=== PATIENT | male | born 1970 | race Caucasian/White ===

== ENCOUNTER 2021-04-16 12:23 | Outpatient (REF) | payer MEDICAID, SELFPAY ==
--- NOTE | ~2021-04-16 | XR_ITS ---
EXAMINATION: XR CHEST CLINICAL INFORMATION: Other symptoms and signs involving the respiratory system COMPARISON: Previous chest x-ray most recent December 2016 TECHNIQUE: 2 views of the chest were obtained. FINDINGS: The cardiac and mediastinal contours are normal. The lungs are clear. There is no pleural effusion or pneumothorax. Bony structures are unremarkable. XR/XR chest 2V IMPRESSION: Unremarkable examination.
== END 2021-04-16 12:24 | disposition home or self-care (01) ==
LOC: HO.XRAY 12:23
PROVIDERS: PCP Internal Medicine Geriatric Medicine; Referring Provider Internal Medicine Geriatric Medicine; Visit Provider Registered Nurse
DX: M54.9 Dorsalgia, unspecified (principal); R09.89 Other specified symptoms and signs involving the circulatory and respiratory systems
CPT/HCPCS: 71046

== ENCOUNTER → 2022-02-20 10:06 | Outpatient (BNVA) | payer MEDICAID, SELFPAY | PROVIDERS: PCP Internal Medicine Geriatric Medicine; Visit Provider Internal Medicine | DX: Z51.81 Encounter for therapeutic drug level monitoring (principal); F10.10 Alcohol abuse, uncomplicated | CPT/HCPCS: 80305; 99202 ==

== ENCOUNTER 2022-12-23 11:35 | Outpatient (REF) | payer MEDICAID, SELFPAY ==
--- NOTE | 2022-12-23 10:00 | EMG_ITS ---
Please see scanned EMG / Nerve Conduction Report. MTDD
== END 2022-12-23 11:36 | disposition home or self-care (01) ==
LOC: HO.NEURO 11:35
PROVIDERS: PCP Internal Medicine Geriatric Medicine; Visit Provider Internal Medicine Geriatric Medicine
DX: R20.2 Paresthesia of skin (principal)
CPT/HCPCS: 95885; 95912

== ENCOUNTER 2023-08-16 09:24 | Outpatient (REF) | payer MEDICAID, SELFPAY ==
[2023-08-16 12:14] LABS: Estimated Average Glucose 111 mg/dL; Hemoglobin A1c % 5.5 % (<6.0)
[2023-08-16 12:34] LABS: Anion Gap 12 (12-20); Blood Urea Nitrogen 20 mg/dL (9-16); Calcium 9.8 mg/dL (8.4-10.2); Carbon Dioxide 20 mmol/L (22-29); Chloride 111 mmol/L (96-108); Estimated Glomerular Filt Rate > 60; Glucose Random 91 mg/dL (60-115); Potassium 4.4 mmol/L (3.3-5.1); Sodium 139 mmol/L (135-145)
== END 2023-08-16 09:25 | disposition home or self-care (01) ==
LOC: HO.HHCL 09:24
PROVIDERS: Visit Provider Internal Medicine Geriatric Medicine
DX: R73.03 Prediabetes (principal)
CPT/HCPCS: 36415; 80048; 83036

== ENCOUNTER 2024-09-19 10:47 | Outpatient (REF) | payer MEDICAID, SELFPAY ==
--- NOTE | ~2024-09-19 | XR_ITS ---
EXAMINATION: XR ANKLE, RIGHT CLINICAL INFORMATION: Pain, order states right ankle pain and swelling after twisting his ankle, rule out fracture COMPARISON: None available. TECHNIQUE: AP, lateral, and mortise views of the right ankle. FINDINGS: Moderate plantar calcaneal spur. Ankle joint effusion. Moderate soft tissue swelling. Ankle mortise is maintained. No displaced fracture appreciated. XR/XR ankle RT min 3V IMPRESSION: 1. Moderate plantar calcaneal spur. 2. Ankle joint effusion. Moderate soft tissue swelling. 3. No displaced fracture appreciated. This study was presented today September 20, 2024 for interpretation. Stat results provided at this time as requested by referring provider. Electronically signed by: Liss Pollock MD 09/20/2024 07:35 AM JOSIAH
== END 2024-09-19 10:48 | disposition home or self-care (01) ==
LOC: HO.HHCX 10:47
PROVIDERS: Visit Provider Family Medicine
DX: M25.571 Pain in right ankle and joints of right foot (principal)
CPT/HCPCS: 73610

== ENCOUNTER 2024-11-09 10:39 | Outpatient (REF) | payer MEDICAID, SELFPAY ==
[2024-11-09 11:28] LABS: MANUAL DIFF FLAG NO
[2024-11-09 11:35] LABS: Basophils Percent Auto 0.5 % (0-2); Eosinophils Absolute Auto 0.1 X10*3/uL (0.0-0.4); Eosinophils Percent Auto 2.6 % (0-4); Hematocrit 44.3 % (42.0-52.0); Hemoglobin 14.4 g/dl (14.0-18.0); Imm Gran Abs Auto 0.01 X10*3/uL (0.00-0.03); Imm Gran Pct Auto 0.2 % (0.0-0.4); Lymphocytes Absolute Auto 1.5 X10*3/uL (1.2-4.9); Lymphocytes Percent Auto 34.7 % (20-40); Mean Corpuscular HGB Conc 32.5 g/dl (31.0-36.0); Mean Corpuscular Hemoglobin 27.6 pg (27.0-33.0); Mean Platelet Volume 11.1 fL (9.4-12.4); Monocytes Absolute Auto 0.4 X10*3/uL (0.1-1.2); Monocytes Percent Auto 10.5 % (2-11); Neutrophils Absolute Auto 2.2 x10*3/uL (2.0-8.3); Neutrophils Percent Auto 51.5 % (45-73); Platelet Count 232 X10*3/uL (160-400); Red Blood Count 5.21 X10*6/uL (4.60-5.80); Red Cell Distribution Width 14.4 % (11.0-16.0); White Blood Count 4.2 X10*3/uL (4.8-10.8)
[2024-11-09 11:36] LABS: Appearance Urine Clear; Color Urine Yellow; Glucose Urine UA Negative (Negative); Leukocyte Esterase Urine Negative (Negative); Nitrite Urine Negative (Negative); PH 5.5 (5.0-9.0); Urine Blood Negative (Negative); Urine Ketones Negative (Negative); Urine Protein Negative (Neg-Trace)
[2024-11-09 11:39] LABS: Bacteria Urine None Seen (None Seen); Hyaline Casts Urine 0-2 /LPF (0-2); RBC Urine 0-2 /HPF (0-2); Squamous Epithelial Cell Urine 0-2 /HPF (0-2); WBC Urine 0-5 /HPF (0-5)
[2024-11-09 12:03] LABS: Alanine Aminotransferase 33 U/L (0-40); Albumin Level 4.2 g/dL (3.5-5.0); Alkaline Phosphatase 65 U/L (39-117); Anion Gap 9 (12-20); Aspartate Amino Transferase 20 U/L (5-37); Bilirubin Total 0.5 mg/dL (0.0-1.0); Blood Urea Nitrogen 15 mg/dL (9-16); Calcium 9.5 mg/dL (8.4-10.2); Carbon Dioxide 25 mmol/L (22-29); Chloride 111 mmol/L (96-108); Cholesterol 184 mg/dL (<200); Estimated Glomerular Filt Rate > 60; Glucose Random 105 mg/dL (60-115); HDL Cholesterol 64 mg/dL (>40); LDL Cholesterol Calculated 110 mg/dL (<100); Potassium 4.2 mmol/L (3.3-5.1); Sodium 141 mmol/L (135-145); Total Protein 7.5 g/dL (6.5-8.0); Triglycerides 53 mg/dL (<150)
[2024-11-09 12:31] LABS: HBS Num1 8.56 mIU/mL (0-7.99); HBsAGNum1 0.37 S/CO (0.00-0.99); HIV AB/AG Nonreactive (Nonreactive); HIV Num 1 0.04 S/CO (0.00-0.99); Hepatitis B Surface Antigen Negative (Negative); ~HepC Num1 0.06 S/CO (0.00-0.79); ~Hepatitis C Antibody Nonreactive (Nonreactive)
[2024-11-09 13:19] LABS: CT PCR NOT DETECTED (Not Detect.); NG PCR NOT DETECTED (Not Detect.)
[2024-11-09 14:17] LABS: HBS Num2 8.94 mIU/mL (0-7.99); ~Hepatitis B Surface Antibody GRAYZONE (Nonreactive)
[2024-11-10 13:58] LABS: RPR Rapid Plasma Reagin NON-REACTIVE (NON-REACTIVE)
== END 2024-11-09 10:40 | disposition home or self-care (01) ==
LOC: HO.HHCL 10:39
PROVIDERS: Visit Provider Internal Medicine Geriatric Medicine
DX: Z00.00 Encounter for general adult medical examination without abnormal findings (principal); Z11.3 Encounter for screening for infections with a predominantly sexual mode of transmission; Z12.5 Encounter for screening for malignant neoplasm of prostate
CPT/HCPCS: 80053; 80061; 81001; 84153; 85025; 86592; 86706; 86803; 87340; 87389; 87491; 87591

== ENCOUNTER 2025-07-13 13:30 | Outpatient (REF) | payer MEDICAID, SELFPAY ==
--- NOTE | ~2025-07-13 | XR_ITS ---
EXAMINATION: XR SHOULDER, RIGHT CLINICAL INFORMATION: Right shoulder pain COMPARISON: None available. TECHNIQUE: AP external rotation, Grashey, scapular Y, and axillary views of the right shoulder. FINDINGS: The bones and soft tissues are normal. No fracture. Glenohumeral and acromioclavicular alignment is anatomic with normal joint space. No abnormal soft tissue calcifications. XR/XR shoulder RT min 2V IMPRESSION: Unremarkable right shoulder. Electronically signed by: Naveed Ferraro MD 07/13/2025 01:59 PM EDT
--- OUTSIDE RECORDS SUMMARY | 2025-07-13 13:00 | XMS_ITS | Encounter Summary ---
Author Organization [employer] Address [address] [place] [address] Care Team Providers Care Senior Ui Ux Designer Name Role Phone Name, Rahul KAM Primary Care Provider [phone] Reason for Referral * Consultation (Routine) - Pending Review Specialty Diagnoses / Procedures Referred By Elijah garcia Referred To Contact Orthopaedic Surgery Diagnoses Acute pain of right shoulder Radha Yanez MD [address] [place] [address] Phone: tel: fax: Referral ID Status Reason Start Date Expiration Date Visits Requested Visits Authorized [id number] Pending Review Specialty Services Required 07/13/2025 07/13/2026 1 1 Reason for Visit * Reason Comments sick visit Encounter Details Date Type Department Care Team (Late st Contact Info) Description 07/13/2025 1:00 PM EDT Office Visit [facility] [address] [place], [place] [phone] Radha Yanez MD [address], [place] [phone] Acute pain of right shoulder Social History Tobacco Use Types Packs/Day Years Used Date Smoking Tobacco: Never Smokeless Tobacco: Never Tobacco Cessation:Counseling Given: Not Answered Alcohol Use Standard Drinks/Week Comments Not Currently 0 (1 standard drink = 0.6 oz pur e alcohol) Depression Answer Date Recorded Patient Health Questionnaire-9 Score 14 05/23/2025 Patient Health Questionnaire-9 Score 14 05/23/2025 Last PHQ-9: Questionnaire Data Not on file 0 05/23/2025 Housing Stability Answer Date Recorded What is your housing situation today? I have housing today, but I am worried about losing housing in the future 05/23/[address] you li ve. Do you have problems with any of the following? Pests such as bugs, ants, or mice 05/23/2025 Food Insecurity Answer Date Recorded Within the past 12 months, y ou worried that your food would run out before you got money to buy more: Sometimes True 2024 Within the past 12 months,th e food you bought just didn't last and you didn't have enough money to get more: Sometimes True 05/23/2025 Transportation Answer Date Recorded In the past 12 months, has l ack of transportation kept you from medical appts, meetings, work or from getting things needed for daily living? No 05/23/2025 Utilities Answer Date Recorded In the past 12 months, has t he electric, gas, oil or water company threatened to shut off services in your home? 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 file Not on file Not on file documented as of this encounter Last Filed Vital Signs Vital Sign Reading Time Taken Comments Blood Pressure 112/74 07/13/2025 1:05 PM EDT Pulse 72 07/13/2025 1:05 PM EDT Temperature 36.5 C (97.7 F) 07/13/2025 1:05 PM EDT Respiratory Rate 20 07/13/2025 1:05 PM EDT Oxygen Saturation - - Inhaled Oxygen Concentration - - Weight 118 kg (260 lb 12.8 oz) 07/13/2025 1:05 P M EDT Height 185.4 cm (6' 1 ) 07/13/2025 1:05 PM EDT Body Mass Index 34.41 07/13/2025 1:05 PM EDT documented in this encounter Plan of Treatment Scheduled Referrals Name Type Priority Associated Diagnoses Order Schedule Referral to Orthopaedic Surgery Outpatient Referral Routine Acute pain of right shoulder Expected: 07/13/2025 (Approximate), Expires: 07/13/2026 documented as of this encounter Procedures Procedure Name Priority Date/Time Associated Diagnosis Comments XR SHOULDER 2+ VIEWS RIGHT Routine 07/13/2025 1:56 PM EDT Acute pain of right shoulder documented in this encounter Results * XR Shoulder 2+ Views Right (07/13/2025 1:56 PM EDT) Anatomical Region Laterality Modality Upper Extremities, Shoulder Right Radi ographic Imaging 07/13/2025 1:56 PM EDT Narrative 07/13/2025 2:02 [place] [address] XRay Report Signed Patient: Yuniel Chambers MR#: [id number] : 1970 Acct:[id number] Age/Sex: 54 / M ADM Date: 07/13/25 Loc: .[facility] Attending Dr: Radha Escobar MD Ordering Physician: Radha Yanez MD Date of Service: 07/13/25 Procedure(s): XR shoulder RT min 2V Accession Number(s): [id number] cc: Radha Yanez MD; Name,Rahul KAM Reason for Exam: pain EXAMINATION: XR SHOULDER, RIGHT CLINICAL INFORMATION: Right shoulder pain COMPARISON: None available. TECHNIQUE: AP external rotation, Grashey, scapular Y, and axillary views of the right shoulder. FINDINGS: The bones and soft tissues are normal. No fracture. Glenohumeral and acromioclavicular alignment is anatomic with normal joint space. No abnormal soft tissue calcifications. XR/XR shoulder RT min 2V IMPRESSION: Unremarkable right shoulder. Electronically signed by: Naveed Ferraro MD 07/13/2025 01:59 PM EDT RP Dictated By: Naveed Ferraro MD Signed By: <Electronically signed by Naveed Ferraro MD in OV> 07/13/25 1359 DD/ 55 TD/TT: 07/13/251356 Bindery Supervisor: Procedure Note Donotlaquitainterpreter, Image - 07/13/[address] [address] XRay Report Signed Patient: Tad Chambers#: [id number] : 1970Acct:[id number] Age/Sex: 54 / MADM Date: 07/13/25 [facility]: Radha Escobar MD Ordering Physician: Radha Yanez MD Date of Service: 07/13/25 Procedure(s): XR shoulder RT min 2V Accession Number(s): [id number] cc: Radha Yanez MD; Name,Rahul KAM Reason for Exam: pain EXAMINATION: XR SHOULDER, RIGHT CLINICAL INFORMATION: Right shoulder pain COMPARISON: None available. TECHNIQUE: AP external rotation, Grashey, scapular Y, and axillary views of the right shoulder. FINDINGS: The bones and soft tissues are normal. No fracture. Glenohumeral and acromioclavicular alignment is anatomic with normal joint space. No abnormal soft tissue calcifications. XR/XR shoulder RT min 2V IMPRESSION: Unremarkable right shoulder. Electronically signed by: Naveed Ferraro MD 07/13/2025 01:59 PM EDT RP Dictated By: Naveed Ferraro MD Signed By: <Electronically signed by Naveed Ferraro MD in OV> 07/13/25 1359 DD/ 55 TD/TT: 07/13/251356 Bindery Supervisor: us Radha Escobar MD IMG XR PROCEDURES Fin al Result documented in this encounter Visit Diagnoses Diagnosis Acute pain of right shoulder documented in this encounter Additional Health Concerns Assessment Noted Time PHQ-9 Depression Total Score: 14 025 11:08 AM EDT documented as of this encounter Care Teams Senior Ui Ux Designer Relationship Specialty Start Date End Date Name, MD Rahul [address] [place] [address] PCP - General Family Medicine 01/16/16 documented as of this encounter
--- OUTSIDE RECORDS SUMMARY | 2025-07-13 14:49 | XMS_ITS | Encounter Summary ---
Author Organization [employer] Address [address] [place] [address] Care Team Providers Care Hospice Home Health Aide Name Role Phone Name, Rahul KAM Primary Care Provider [phone] Encounter Details Date Type Department Care Team ([facility] st Contact Info) Description 12/16/2022 Orders Only [facility] [address] [place] [address] Gabriella Mejía LPN Social History Tobacco Use Types Packs/Day Years Used Date Smoking Tobacco: Never Smokeless Tobacco: Never Depression Answer Date Recorded Patient Health Questionnaire-9 Score 0 10/07/2022 Depression Answer Date Recorded Patient Health Questionnaire-2 Score 0 10/07/2022 Sex and Gender Information Value Date Recorded Sex Assigned at Male 08/17/2022 10:15 AM EDT Legal Sex Male 10:15 AM EDT Gender Identity Choose not to disclose 10:15 AM EDT Sexual Orientation Choose not to disclose 2021 10:15 AM EDT documented as of this encounter Plan of Treatment Not on file documented as of this encounter Visit Diagnoses Not on filedocumented in this encounter Additional Health Concerns Assessment Noted Time PHQ-9 Depression Total Score: 0 10/07/20 22 2:34 PM EST documented as of this encounter Care Teams Hospice Home Health Aide Relationship Specialty Start Date End Date Name, MD Rahul [address] [place] [address] PCP - General Family Medicine 01/16/16 documented as of this encounter
--- OUTSIDE RECORDS SUMMARY | 2025-07-13 14:49 | XMS_ITS | Encounter Summary ---
Author Organization [employer] Address [address] [facility] [address] [place] [address] Care Team Providers Care Drug Safety Data Management Specialist Name Role Phone Name, Rahul KAM Primary Care Provider [phone] Encounter Details Date Type Department Care Team ([facility] st Contact Info) Description 03/29/2023 Abstract [facility] MEDICINE [address] [place], [place] [phone] Name, MD Rahul [address] [place] [address] Social History Tobacco Use Types Packs/Day Years Used Date Smoking Tobacco: Never Smokeless Tobacco: Never Alcohol Use Standard Drinks/Week Comments Not Currently [...] 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 No / Unsure 03/10/2023 2:44 PM EDT documented as of this encounter Plan of Treatment Not on file documented as of this encounter Procedures Procedure Name Priority Date/Time Associated Diagnosis Comments HM COLONOSCOPY Routine 03/29/2023 12:58 PM EDT COLONOSCOPY Routine 01/22/2022 12:57 PM EDT documented in this encounter Results * Colonoscopy (01/22/2022 12:57 PM EDT) Colonoscopy Normal Normal Narrative Monica Hebert - 01/22/2022 12:57 PM EDT Recommended 5 years ( [facility] ) us Historical Provider HEALTH MAINTENANCE Final Result documented in this encounter Visit Diagnoses Not on filedocumented in this encounter Additional Health Concerns Assessment Noted Time PHQ-9 Depression Total Score: 0 10/07/20 22 2:34 PM EST documented as of this encounter Care Teams Drug Safety Data Management Specialist Relationship Specialty Start Date End Date Name, MD Rahul [address] [place] [address] PCP - General Family Medicine 01/16/16 documented as of this encounter
--- OUTSIDE RECORDS SUMMARY | 2025-07-13 14:49 | XMS_ITS | Clinical Summary ---
Author Organization [employer] Address [address] [facility] 7t [place] [address] Care Team Providers Care Store Director Name Role Phone Name, Rahul KAM Primary Care Provider [phone] Allergies No known active allergies Medications * This document contains information received from the source organization and may not represent a complete record from that organization. lidocaine (Lidoderm) 5 % patchIndication s:Acute low back pain without sciatica, unspecified back pain laterality APPLY 1 PATCH TOPICALLY TO SKIN, LEAVE ON FOR 12 HOURS AND OFF FOR 12 HOURS DIRECTED 30 patch 1 12/17/19 23 Active Lidoderm 5 % patch APPLY 1 PATCH TOPICALLY TO SKIN, LEAVE ON FOR 12 HOURS AND OFF FOR 12 HOURS DIRECTED 08/28/20 22 Active fluconazole (Diflucan) 200 MG tabletIndicatio ns:Tinea versicolor Take 1 tablet (200 mg) by mouth 1 (one) time per week. 4 tablet 08/27/20 23 Active omeprazole (PriLOSEC) [address] capsuleIndicati ons:Heartburn TAKE 1 CAPSULE BY MOUTH DAILY BEFORE BREAKFAST 90 capsule 1 01/17/20 24 Active Diclofenac Sodium 1 % gel Apply 2 g topically if needed in the morning, at noon, in the evening, and at bedtime (pain). 150 g 3 09/19/20 24 Active acetaminophen (Tylenol 8 Hour) 650 MG ER tablet TAKE 1 TABLET BY MOUTH EVERY 8 HOURS NEEDED FOR MILD PAIN, DO NOT BREAK, CRUSH, DISSOLVE OR CHEW 40 tablet 1 12/06/19 25 Active sildenafil (Viagra) 100 MG tabletIndicatio ns:Erectile dysfunction, unspecified erectile dysfunction type TAKE 1 TABLET 1 HOUR BEFORE SEXUAL RELATIONS ONCE DAILY NEEDED. 10 tablet 5 05/23/20 25 Active naproxen (Naprosyn) 500 MG tabletIndicatio ns:Acute pain of right shoulder Take 1 tablet (500 mg) by mouth with breakfast and with evening meal. 30 tablet 07/13/20 25 Active cyclobenzaprine (Flexeril) 5 MG tabletIndicatio ns:Acute pain of right shoulder Take 1 tablet (5 mg) by mouth 3 times daily for 10 days. 30 tablet 07/13/20 25 025 Active lidocaine (Lidoderm) 5 % patchIndication s:Acute pain of right shoulder Apply 1 patch topically Once per day. Remove & discard patch within 12 hours or as directed by MD. 30 patch 1 07/13/20 25 Active naproxen (Naprosyn) 500 MG tablet TAKE 1 TABLET BY MOUTH TWICE DAILY IN THE MORNING AND AT BEDTIME NEEDED FOR MILD OR MODERATE PAIN 30 tablet 1 12/06/19 25 025 Discontinued(Re order (will not trigger notification to Pharmacy)) Active Problems Problem Noted Date Diagnosed Date Acute pain of right shoulder 07/13/2025 Skin lesions 07/12/2023 Assessment & Plan (07/12/2023 8:30 PM EDT): chronic hyperpigmented macules in both forearms -dorsal surface likely from sun exposure -pt would like complete skin eval for screening of ca and eval lesions -advised pt to avoid direct sun exposure and to use sunscreen -referred today to dermatology for complete skin exam Health care maintenance 07/12/2023 Assessment & Plan (07/12/2023 8:31 PM EDT): -offered today flu vaccine but per pt had vaccination last week at pharmacy History of colonoscopy 04/20/2023 Overview (04/20/2023): 2021 done at [facility], tubuloar adenoma recommended repeat in 5 years Rosacea 04/19/2023 Avascular necrosis of bone of hip 03/10/2023 Overview (08/16/2023): S/p right hip replacement at [facility] 2019 Depressive disorder 03/10/2023 Obesity 03/10/2023 Pulmonary emphysema 03/10/2023 Shoulder pain 2017 Alcohol dependence 10/27/2017 ED (erectile dysfunction) of non-organic origin 10/27/2017 Chronic low back pain 05/25/2017 Cocaine abuse 01/13/2013 Cyst of epididymis 08/11/2012 Impaired fasting glucose 08/11/2012 Lipoma 08/11/2012 Tenosynovitis of fingers 08/11/2012 Trochanteric bursitis 08/11/2012 Resolved Problems Problem Noted Date Diagnosed Date Resolved Date Cough 03/10/2023 09/19/2024 Encounters * This document contains information received from the source organization and may not represent a complete record from that organization. Date Type Department Care Team Description 07/13/2025 1:00 PM EDT Office Visit [address] [address] Radha Yanez MD Acute pain of right shoulder 07/13/2025 Travel 07/13/[address] [address] Rahul Lezama MD Nurse Triage 06/04/[address] [address] Rahul Lezama MD 06/01/2025 Patient Outreach [address] [address] Rahul Lezama MD Transition Of Care (Tcm) (HDF- Unscheduled - PT LEFT AMA, Message was sent to team nurses for status check.) 05/23/2025 10:45 AM EDT Office Visit [address] [address] Rahul Lezama MD Erectile dysfunction, unspecified erectile dysfunction type (Primary Dx); Encounter for immunization 05/23/2025 Travel 05/16/2025 Travel 05/04/[address] [address] Rahul Lezama MD Erectile dysfunction, unspecified erectile dysfunction type from Last 3 Months Immunizations Immunization Administration Dates Next Due Hep B, adult 10/01/2008,04/03/2008,03/01/2008 Influenza Injectable Quadriv alant Preservative Free IIV4 MDCK 07/03/2023 Influenza injectable quadriv alent IIV4 with preservative 08/21/2019,07/23/2016 Influenza injectable quadriv alent preservative free 08/12/2022,07/15/2021,07/10/2020 Influenza, IIV3, injectable 08/17/2011 Influenza, Injectable, MDCK, preservative free 08/25/2024 Influenza, Split (incl. 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 file Not on file Not on file Last Filed Vital Signs Vital Sign Reading Time Taken Comments Blood Pressure 112/74 07/13/2025 1:05 PM EDT Pulse 72 07/13/2025 1:05 PM EDT Temperature 36.5 C (97.7 F) 07/13/2025 1:05 PM EDT Respiratory Rate 20 07/13/2025 1:05 PM EDT Oxygen Saturation 98% 05/23/2025 11:07 AM EDT Inhaled Oxygen Concentration - - Weight 118 kg (260 lb 12.8 oz) 07/13/2025 1:05 P M EDT Height 185.4 cm (6' 1 ) 07/13/2025 1:05 PM EDT Body Mass Index 34.41 07/13/2025 1:05 PM EDT Plan of Treatment Health Maintenance Due Date Last Done Comments CT Colonography 1968 FIT DNA/Cologuard 1968 FIT 1968 FOBT 1968 Sigmoidoscopy 1968 COVID-19 Vaccine ( season) 2025 04/27/2022, 11/20/2021, 01/01/2021 Influenza Vaccine (#1) 2025 , 07/03/2023, 08/12/2022, Additional history exists Alcohol/Substance Use Screening 11/09/2025 11/09/2024 Depression Monitoring 11/23/2025 05/23/2025, 025 Disability Screening 05/16/2026 05/16/2025 SDOH Screening 05/23/2026 05/23/2025 Tobacco Screening 07/13/2026 07/13/2025 Colonoscopy 03/29/2028 03/29/2023, 01/22/2022 Colorectal Cancer Screening 03/29/2028 Lipid Panel 11/09/2029 11/09/2024, 06/0 02/2023, 04/17/2022, Additional history exists DTaP/Tdap/Td Vaccines (2 - Td or Tdap) 11/09/2034 11/09/2024, 09/01/2017, 04/15/2012, Additional history exists RSV Patients and Patients Aged 60 years or older (1 - 1-dose 75+ series) 2043 Hepatitis B Vaccines Completed 10/01/2008, 04/03/2008, 03/01/2008 Zoster Vaccines Completed 06/29/2022, 04/27/2022 HIV Screening Completed 11/09/2024, 07/23/2021 Hepatitis C Screening Completed 11/09/2024, 021 Pneumococcal Vaccine: 50+ Years Completed 05/23/2025, 07/23/2016 HIB Vaccines Aged Out No longer eligi ble based on patient's age to complete this topic HPV Vaccines Aged Out No longer eligi ble based on patient's age to complete this topic Hepatitis A Vaccines Aged Out No long er eligible based on patient's age to complete this topic IPV Vaccines Aged Out No longer eligi ble based on patient's age to complete this topic Meningococcal B Vaccine Aged Out No l onger eligible based on patient's age to complete this topic Meningococcal Vaccine Aged Out No amalia jamey eligible based on patient's age to complete this topic RSV under 20 months Aged Out No longe r eligible based on patient's age to complete this topic Rotavirus Vaccines Aged Out No longer eligible based on patient's age to complete this topic Procedures Procedure Name Priority Date/Time Associated Diagnosis Comments XR SHOULDER 2+ VIEWS RIGHT Routine 07/13/2025 1:56 PM EDT Acute pain of right shoulder HEPATITIS C AB W/REFL TO HCV RNA, QN, PCR Routine 11/09/2024 10:45 AM EST Screening examination for STI HIV 1/2 ANTIGEN/ANTIBODY, FOURTH GENERATION W/RFL Routine 11/09/2024 10:45 AM EST Screening examination for STI LIPID PANEL, STANDARD Routine 11/09/2024 10:45 AM EST PE (physical exam), routine HM COLONOSCOPY Routine 03/29/2023 12:58 PM EDT from Last 3 Months or Most Recently Relevant to Health Maintenance Results * XR Shoulder 2+ Views Right (07/13/2025 1:56 PM EDT) Anatomical Region Laterality Modality Upper Extremities, Shoulder Right Radi ographic Imaging 07/13/2025 1:56 PM EDT Narrative 07/13/2025 2:02 [place] [address] XRay Report Signed Patient: Yuniel Chambers MR#: [id number] : 1970 Acct:[id number] Age/Sex: 54 / M ADM Date: 07/13/25 Loc: HO.HHCX Attending Dr: Radha Escobar MD Ordering Physician: Radha Yanez MD Date of Service: 07/13/25 Procedure(s): XR shoulder RT min 2V Accession Number(s): [id number] cc: Radha Yanez MD; Name,Rahul KAM Reason [...] Naveed Ferraro MD 07/13/2025 01:59 PM EDT Dictated By: Naveed Ferraro MD Signed By: <Electronically signed by Naveed Ferraro MD in OV> 07/13/25 1359 DD/ 1356 TD/TT: 07/13/25 135 Seismic Survey Assistant: Procedure Note Gustavoter, Image - 07/13/[address] [address] XRay Report Signed Patient: Tad Chambers#: [id number] : 1970Acct:[id number] Age/Sex: 54 / MADM Date: 07/13/25 Loc: HO.HHCX Attending Dr: Radha Escobar MD Ordering Physician: Radha Yanez MD Date of Service: 07/13/25 Procedure(s): XR shoulder RT min 2V Accession Number(s): [id number] cc: Radha Yanez MD; Name,Rahul KAM Reason [...] Naveed Ferraro MD 07/13/2025 01:59 PM EDT Dictated By: Navede Ferraro MD Signed By: <Electronically signed by Naveed Ferraro MD in OV> 07/13/25 1359 DD/ 1356 TD/TT: 07/13/251356 Seismic Survey Assistant: Radha Escobar MD IMG XR PROCEDURES Fin al Result * Hepatitis C Antibody with Reflex to HCV, RNA, Quantitative, Real-Time PCR (11/09/2024 10:45 AM EST) Hepatitis C Antibody Nonreactive Nonreactive [facility] Comment:Antibodies to HCV no t detected; does not exclude early acuteHCV infection. Blood Venous blood specimen / Unknown 11/09/2024 10:45 AM EST 11/09/2024 11:33 AM EST Rahul Lezama MD LAB BLOOD ORDERABLES Final Resul t Performing Organization Address City/[facility]/ZIP Co de Phone Number [facility] [address] [place] [phone] * HIV-1/2 Antigen and Antibodies, Fourth Generation, with Reflexes (11/09/2024 10:45 AM EST) [facility] HIV AB/AG Nonreactive Nonreactive [facility] Comment:HIV-1 p24 Ag and/or HIV-1/HIV-2 Ab not detected.A test result that is nonreactive does not exclude thepossibility of exposure to or infection with HIV-1 and/orHIV-2. Nonreactive results in this assay for individualswith prior exposure to HIV-1 and/or HIV-2 may be due toantigen and antibody levels that are below the limit ofdetection of this assay.The AMVONETniFuturefleet HIV Ag/Ab Combo assay result andsupplemental assay results should be interpreted inconjunction with the patient's clinical presentation,history and other laboratory results. If the results areinconsistent with clinical evidence, additional testing issuggested to confirm the result. Blood Venous blood specimen / Unknown 11/09/2024 10:45 AM EST 11/09/2024 11:33 AM EST us Rahul Lezama MD LAB BLOOD ORDERABLES Final Resul t Performing Organization Address City/[facility]/ZIP Co de Phone Number [facility] [address] [place] [phone] * (ABNORMAL) Lipid Panel, Standard (11/09/2024 10:45 AM EST) Pathologist [facility] Triglycerides 53 <150 mg/dL [facility] Comment:Desirable Triglyceri de: less than 150 mg/dLBorderline High Triglyceride 150-199 mg/dLHigh Triglyceride: 200-499 mg/dLVery High Triglyceride: greater than or equal to 5OO mg/dL Cholesterol 184 <200 mg/dL [facility] Comment:Desirable Cholestero l: less than 200 mg/dLBorderline High Cholesterol: 200-239 mg/dLHigh Cholesterol: greater than 239 mg/dL LDL Cholesterol Calculated 110(H) <100 mg/dL [facility] Comment:Desirable LDL: less than 100 mg/dLNear Optimal/Above Optimal LDL: 110- 129 mg/dLBorderline High LDL: 130-159 mg/dLHigh LDL: 160-189 mg/dLVery High LDL: greater than or equal to 190 mg/dL HDL Cholesterol 64 >40 mg/dL [facility] Comment:Desirable HDL: great er than 40 mg/dL Note: This HDL assay may give artificially low results in patients with liver disease. Blood Venous blood specimen / Unknown 11/09/2024 10:45 AM EST 11/09/2024 11:33 AM EST Rahul Name LAB BLOOD ORDERABLES Final Resul t [facility] [address] [place] [phone] * Hm Colonoscopy (01/22/2022 12:57 PM EDT) Colonoscopy Normal Normal Narrative Monica Hebert - 01/22/2022 12:57 PM EDT Recommended 5 years ( [facility] ) Historical Provider HEALTH MAINTENANCE Final Result from Last 3 Months or Most Recently Relevant to Health Maintenance Insurance C3 Care Teams Store Director Relationship Specialty Start Date End Date Name, MD Rahul [address] [place] [address] PCP - General Family Medicine 01/16/16
--- OUTSIDE RECORDS SUMMARY | 2025-07-13 14:49 | XMS_ITS | Encounter Summary ---
Author Organization [employer] Address [address] [facility] [address] 7[address] [place] [address] Care Team Providers Care Refining Engineer Name Role Phone Name, Rahul KAM Primary Care Provider [phone] Reason for Visit * Reason Onset Date Comments Nurse Triage 07/13/2025 Encounter Details Date Type Department Care Team ([facility] st Contact Info) Description 07/13/[address] 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 Call returned to Yuniel Rodriguez to triage below at [phone]. Reports having pain on right arm x 2 months. Pt reports having pain withROM. Pt states 3 days of limited ROM. Pt states pain radiates to hand. Causing numbness and weakness. Pt states has history of tendonitis. PT using OTC naproxen with minimal relief. Pt advised of disposition, agrees to sick onsite with team provider Protocol Used: Arm Pain (Adult) Protocol-Based Disposition: See in Office or Video Visit Today Positive Triage Question: * Weakness (i.e., loss of strength) of new-onset in hand or fingers (Exceptions: Not truly weak, hand feels weak because of pain; weakness present > 2 weeks) * All higher-acuity triage questions were negative Care Advice Discussed: * Pain Medicines * Reasons To Call Back - Severe pain lasts over 2 hours after pain medicine - Arm swelling occurs - Signs of infection occur (such as spreading redness, warmth, fever) - You become worse * Telephone Encounter - Evelin Pitts - 07/13/2025 9:13 AM EDT Symptom: Arm Pain - Not From Injury Outcome: Schedule an urgent appointment (within 1 hour) or talk to a nurse or provider soon Reason: Can't use the arm normally The caller accepted this outcome. Contact pt at [phone] Need senior capital markets specialist documented in this encounter Plan of Treatment Not on file documented as of this encounter Visit Diagnoses Not on filedocumented in this encounter Additional Health Concerns Assessment Noted Time PHQ-9 Depression Total Score: 14 025 11:08 AM EDT documented as of this encounter Care Teams Refining Engineer Relationship Specialty Start Date End Date Name, MD Rahul [address] [place] [address] PCP - General Family Medicine 01/16/16 documented as of this encounter
--- OUTSIDE RECORDS SUMMARY | 2025-07-13 14:49 | XMS_ITS | Clinical Summary ---
Author Organization [facility] Address [address] [place] [phone] Care Team Providers Care Blockman Name Role Phone Name, Rahul KAM Primary Care Provider [phone] Social History Tobacco Use Types Packs/Day Years Used Date Smoking Tobacco: Never Assessed Sex and Gender Information Value Date Recorded Sex Assigned at Not on file Legal Sex Male 8:29 AM EST Gender Identity Not on file Sexual Orientation Not on file Plan of Treatment Health Maintenance Due Date Last Done Comments DTaP,Tdap,and Td Vaccines (1 - Tdap) 1987 Hepatitis B Vaccines (1 of 3 - 19+ 3-dose series) 1987 Pneumococcal Vaccine: 50+ Ye ars (1 of 1 - PCV) 2018 Zoster Vaccines (1 of 2) 2018 Cholesterol Screening (Lipid Panel) 01/12/2024 Colorectal Cancer Screening: Colonoscopy 01/12/2024 HIV Screening 01/12/2024 Hepatitis C Screening 01/12/2024 Social Influencers of Health Screening 01/12/2024 Depression Screening 10/18/2024 COVID-19 Vaccine ( - 2023-2 5 season) 2025 Influenza Vaccine (#1) 2025 RSV Immunization Adult Patie nts (1 - 1-dose 75+ series) 2043 HIB Vaccines Aged Out No longer eligi [...] on patient's age to complete this topic MMR Vaccines Aged Out No longer eligi ble based on patient's age to complete this topic Meningococcal ACWY Vaccine Aged Out N o longer eligible based on patient's age to complete this topic Meningococcal B Vaccine Aged Out No l onger eligible based on patient's age to complete this topic RSV Immunization Patients Un maria luz 20 months Aged Out No longer eligible b ased on patient's age to complete this topic Varicella Vaccines Aged Out No longer eligible based on patient's age to complete this topic Care Teams Blockman Relationship Specialty Start Date End Date Name, MD Rahul [address] [place] [address] PCP - General Internal Medicine 04/19/17
--- OUTSIDE RECORDS SUMMARY | 2025-07-13 14:49 | XMS_ITS | Encounter Summary ---
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
--- OUTSIDE RECORDS SUMMARY | 2025-07-13 14:49 | XMS_ITS | Encounter Summary ---
Author Organization [employer] Address [address] [facility] [address] [place] [address] Care Team Providers Care Technical Adjuster Name Role Phone Name, Rahul KAM Primary Care Provider [phone] Reason for Visit * Reason Comments Med Refill Encounter Details Date Type Department Care Team ([facility] st Contact Info) Description 01/25/2025 Refill [facility] MEDICINE [address] [place] [address] Name, MD Rahul [address] [place] [address] Erectile dysfunction, unspecified erectile dysfunction type Social History Tobacco Use Types Packs/Day Years Used Date Smoking Tobacco: Never Smokeless Tobacco: Never Alcohol Use Standard Drinks/Week Comments Not Currently 0 (1 standard drink = 0.6 oz pur e alcohol) Depression Answer Date Recorded Patient Health Questionnaire-9 Score 10 11/09/2024 Patient Health Questionnaire-9 Score 10 11/09/2024 Last PHQ-9: Questionnaire Data Not on file 0 11/09/2024 Housing Stability Answer Date Recorded What is your housing situation today? I have ruthann call 05/02/[address] you li ve. Do you have problems with any of the following? None of the above 05/02/2024 Food Insecurity Answer Date Recorded Within the past 12 months, y ou worried that your food would run out before you got money to buy more: Never True 05/02/2024 Within the past 12 months,th e food you bought just didn't last and you didn't have enough money to get more: Never True Transportation Answer Date Recorded In the past 12 months, has l ack of transportation kept you from medical appts, meetings, work or from getting things needed for daily living? No 05/02/2024 Utilities Answer Date Recorded In the past 12 months, has t he electric, gas, oil or water company threatened to shut off services in your home? 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
--- OUTSIDE RECORDS SUMMARY | 2025-07-13 14:49 | XMS_ITS | Encounter Summary ---
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
--- OUTSIDE RECORDS SUMMARY | 2025-07-13 14:49 | XMS_ITS | Encounter Summary ---
Author Organization [employer] Address [address] [facility] 7t [place] [address] Care Team Providers Care Microphone Boom Operator Name Role Phone Name, Rahul KAM Primary Care Provider [phone] Reason for Visit * Reason Onset Date Comments Nurse Triage 06/15/2023 Encounter Details Date Type Department Care Team ([facility] st Contact Info) Description 06/15/[address] 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 Pt reports it started with just 2 spots now it is spread from wrist to elbow on both forearms. Pt denies itchiness and the spots range from size of pencil eraser to quarter. 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 Apt with Dr. Ashwin Mahmood 07/12/23 @ 900am. Insurance is verified as active prior tobooking. Protocol Used: Skin Lesion - Moles or Growths (Adult) Protocol-Based Disposition: See in Office or Video Visit within 2 Weeks Video visit not offered Positive Triage Question: * Caller is uncertain what lesion is * All higher-acuity triage questions were negative Care Advice Discussed: * Freckles * Monthly Skin Self-Exam * Skin Health * Reasons To Call Back - Fever or pain occurs - Any change in the mole or growth - You become worse * Telephone Encounter - Alessandra Conley - 06/15/2023 10:38 AM EDT Symptom: Skin Spot Outcome: Schedule a same-day appointment or talk to a nurse or provider today Reason: spreading The caller accepted this outcome Please contact pt at [phone] (Malay) documented in this encounter Plan of Treatment Not on file documented as of this encounter Visit Diagnoses Not on filedocumented in this encounter Additional Health Concerns Assessment Noted Time PHQ-9 Depression Total Score: 0 10/07/20 22 2:34 PM EST documented as of this encounter Care Teams Microphone Boom Operator Relationship Specialty Start Date End Date Name, MD Rahul [address] [place] [address] PCP - General Family Medicine 01/16/16 documented as of this encounter
--- OUTSIDE RECORDS SUMMARY | 2025-07-13 14:49 | XMS_ITS | Encounter Summary ---
Author Organization [employer] [facility] Address [address] [place] [address] 7t [place] [address] Care Team Providers Care Director River Restoration Name Role Phone Name, Rahul KAM Primary Care Provider [phone] Encounter Details Date Type Department Care Team ([facility] st Contact Info) Description 11/12/2022 Orders Only [facility] MEDICINE [address] [place] [address] Mary Perkins LPN Social History Tobacco Use Types Packs/Day [...] documented as of this encounter Care Teams Director River Restoration Relationship Specialty Start Date End Date Name, MD Rahul [address] [place] [address] PCP - General Family Medicine 01/16/16 documented as of this encounter
== END 2025-07-13 13:31 | disposition home or self-care (01) ==
LOC: HO.HHCX 13:30
PROVIDERS: PCP Internal Medicine Geriatric Medicine; Visit Provider Internal Medicine
DX: M25.511 Pain in right shoulder (principal)
CPT/HCPCS: 73030

== ENCOUNTER → 2025-07-13 13:34 | Outpatient (BNV) | payer MEDICAID, SELFPAY | PROVIDERS: PCP Internal Medicine Geriatric Medicine; Visit Provider Radiology Diagnostic Radiology | DX: M25.511 Pain in right shoulder (principal) | CPT/HCPCS: 73030 ==

== ENCOUNTER 2025-08-30 07:44 | Outpatient (AMB) | payer MEDICAID, SELFPAY ==
--- OUTSIDE RECORDS SUMMARY | 2025-08-30 07:47 | XMS_ITS | Encounter Summary ---
Author Organization [employer] Address [address] [facility] 7t [place] [address] Care Team Providers Care Wood Engraver Name Role Phone Name, Rahul KAM Primary Care Provider [phone] Encounter Details Date Type Department Care Team ([facility] st Contact Info) Description 12/16/2022 Orders Only [facility] MED & PEDS [address] [place] [address] Gabriella Mejía LPN Social History Tobacco Use [...] documented as of this encounter Care Teams Wood Engraver Relationship Specialty Start Date End Date Name, MD Rahul [address] [place] [address] PCP - General Family Medicine 01/16/16 documented as of this encounter
--- OUTSIDE RECORDS SUMMARY | 2025-08-30 07:47 | XMS_ITS | Encounter Summary ---
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
--- OUTSIDE RECORDS SUMMARY | 2025-08-30 07:47 | XMS_ITS | Encounter Summary ---
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 Pt reports it started with just 2 spots now it is spread from wrist to elbow on both forearms. Pt denies itchiness and the spots range from size of pencil eraser to quarter. 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
--- OUTSIDE RECORDS SUMMARY | 2025-08-30 07:47 | XMS_ITS | Encounter Summary ---
Author Organization [employer] Address [address] [place] [address] 7t [place] [address] Care Team Providers Care Circuit Board Assembler Name Role Phone Name, Rahul KAM Primary Care Provider [phone] Encounter Details Date Type Department Care Team ([facility] st Contact Info) Description 11/12/2022 Orders Only [facility] MEDICINE [address] [place] [address] Mary Perkins LPN Social History Tobacco Use [...] documented as of this encounter Care Teams Circuit Board Assembler Relationship Specialty Start Date End Date Name, MD Rahul [address] [place] [address] PCP - General Family Medicine 01/16/16 documented as of this encounter
--- OUTSIDE RECORDS SUMMARY | 2025-08-30 07:47 | XMS_ITS | Encounter Summary ---
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
--- OUTSIDE RECORDS SUMMARY | 2025-08-30 07:47 | XMS_ITS | Encounter Summary ---
Author Organization [employer] Address [address] 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
--- OUTSIDE RECORDS SUMMARY | 2025-08-30 07:47 | XMS_ITS | Clinical Summary ---
Author Organization [employer] Address [address] [facility] 7t [place] [address] Care Team Providers Care School Transportation Director Name Role Phone Name, Rahul KAM Primary Care Provider [phone] Allergies No known active allergies Medications * This document contains information received from the source organization and may not represent a complete record from that organization. lidocaine (Lidoderm) 5 % patchIndications :Acute low back pain without sciatica, unspecified back pain laterality APPLY 1 PATCH TOPICALLY TO SKIN, LEAVE ON FOR 12 HOURS AND OFF FOR 12 HOURS DIRECTED 30 patch 1 3 Active Lidoderm 5 % patch APPLY 1 PATCH TOPICALLY TO SKIN, LEAVE ON FOR 12 HOURS AND OFF FOR 12 HOURS DIRECTED 2 Active fluconazole (Diflucan) 200 MG tabletIndication s:Tinea versicolor Take 1 tablet (200 mg) by mouth 1 (one) time per week. 4 tablet 3 Active omeprazole (PriLOSEC) [address] Anselmo ns:Heartburn TAKE 1 CAPSULE BY MOUTH DAILY BEFORE BREAKFAST 90 capsule 1 4 Active Diclofenac Sodium 1 % gel Apply 2 g topically if needed in the morning, at noon, in the evening, and at bedtime (pain). 150 g 3 4 Active acetaminophen (Tylenol 8 Hour) 650 MG ER tablet TAKE 1 TABLET BY MOUTH EVERY 8 HOURS NEEDED FOR MILD PAIN, DO NOT BREAK, CRUSH, DISSOLVE OR CHEW 40 tablet 1 5 Active sildenafil (Viagra) 100 MG tabletIndication s:Erectile dysfunction, unspecified erectile dysfunction type TAKE 1 TABLET 1 HOUR BEFORE SEXUAL RELATIONS ONCE DAILY NEEDED. 10 tablet 5 5 Active naproxen (Naprosyn) 500 MG tabletIndication s:Acute pain of right shoulder Take 1 tablet (500 mg) by mouth with breakfast and with evening meal. 30 tablet 5 Active lidocaine (Lidoderm) 5 % patchIndications :Acute pain of right shoulder Apply 1 patch topically Once per day. Remove & discard patch within 12 hours or as directed by MD. 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 Date Type Department Care Team Description 08/13/[address] [address] Rahul Lezama MD Erectile dysfunction, unspecified erectile dysfunction type 07/16/[address] [address] Rahul Lezama MD 07/16/2025 Results Follow-Up [address] [address] Radha Yanez MD XR Shoulder 2+ Views Right 07/13/2025 1:00 PM EDT Office Visit [address] [address] Radha Yanez MD Acute pain of right shoulder 07/13/2025 Travel 07/13/[address] [address] Rahul Lezama MD Nurse Triage 06/04/[address] [address] Rahul Lezama MD 06/01/2025 Patient Outreach [address] [address] Rahul Lezama MD Transition Of Care (Tcm) (HDF- Unscheduled - PT LEFT AMA, Message was sent to team nurses for status check.) from Last 3 Months Immunizations Immunization Administration [...] 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 Not on [...] 1968 FIT 1968 FOBT 1968 Sigmoidoscopy 1968 RSV Patients and Patients Aged 60 years or older (1 - Risk 50-74 years 1-dose series) 2018 COVID-19 Vaccine ( season) 2025 04/27/2022, 11/20/2021, [...] 11/09/2034 11/09/2024, 09/01/2017, 04/15/2012, Additional history exists Hepatitis B Vaccines Completed 10/01/2008, 04/03/2008, 03/01/2008 [...] PM EDT Narrative 07/13/2025 2:02 PM EDT [address] [address] XRay Report Signed Patient: Yuniel Chambers MR#: [id number] : 1970 Acct:[id number] Age/Sex: 54 / M ADM Date: 07/13/25 Loc: HO.HHCX Attending Dr: Radha Escobar MD Ordering Physician: Radha Yanez MD Date of Service: 07/13/25 Procedure(s): XR shoulder RT min 2V Accession Number(s): [id number] cc: Radha Yanez MD; Name,Rahul KAM Reason [...] OV> 07/13/25 1359 DD/ 1356 TD/TT: 07/13/25 1357 Machine Sprayer: Procedure Note Gustavoter, Image - 07/13/2025 [facility] [address] [place] [address] XRay Report Signed Patient: Tad Chambers#: [id number] : 1970Acct:[id number] Age/Sex: 54 / MADM Date: 07/13/25 Loc: HO.HHCX Attending Dr: Radha Escobar MD Ordering Physician: Radha Yanez MD Date of Service: 07/13/25 Procedure(s): XR shoulder RT min 2V Accession Number(s): [id number] cc: Radha Yanez MD; Name,Rahul KAM Reason [...] OV> 07/13/25 1359 DD/ 1356 TD/TT: 07/13/25 1357 Machine Sprayer: us Radha Escobar MD IMG XR PROCEDURES Fin al Result * Hepatitis C Antibody with Reflex to HCV, RNA, Quantitative, Real-Time PCR (11/09/2024 10:45 AM EST) Hepatitis C Antibody Nonreactive Nonreactive [facility] Comment:Antibodies to HCV no t detected; does not exclude early acuteHCV infection. Blood Venous blood specimen / Unknown 11/09/2024 10:45 AM EST 11/09/2024 11:33 AM EST us Rahul Lezama MD LAB BLOOD ORDERABLES Final Resul t Performing Organization Address [facility] Co de Phone Number [facility] [address] [place] [phone] * HIV-1/2 Antigen and Antibodies, Fourth Generation, with Reflexes (11/09/2024 10:45 AM EST) HIV AB/AG Nonreactive Nonreactive [facility] Comment:HIV-1 p24 Ag and/or HIV-1/HIV-2 Ab not detected.A test result that is nonreactive does not exclude thepossibility of exposure to or infection with HIV-1 and/orHIV-2. Nonreactive results in this assay for individualswith prior exposure to HIV-1 and/or HIV-2 may be due toantigen and antibody levels that are below the limit ofdetection of this assay.The [email or web address] HIV Ag/Ab Combo assay result andsupplemental assay results should be interpreted inconjunction with the patient's clinical presentation,history and other laboratory results. If the results areinconsistent with clinical evidence, additional testing issuggested to confirm the result. Blood Venous blood specimen / Unknown 11/09/2024 10:45 AM EST 11/09/2024 11:33 AM EST us Rahul Lezama MD LAB BLOOD ORDERABLES Final Resul t Performing Organization Address City/[facility]/ZIP Co de Phone Number [facility] [address] [place] [phone] * (ABNORMAL) Lipid Panel, Standard (11/09/2024 10:45 AM EST) Triglycerides 53 <150 mg/dL [facility] Comment:Desirable Triglyceri de: less than 150 mg/dLBorderline High Triglyceride 150-199 mg/dLHigh Triglyceride: 200-499 mg/dLVery High Triglyceride: greater than or equal to 5OO mg/dL Cholesterol 184 <200 mg/dL [facility] Comment:Desirable Cholestero l: less than 200 mg/dLBorderline High Cholesterol: 200-239 mg/dLHigh Cholesterol: greater than 239 mg/dL LDL Cholesterol Calculated 110(H) <100 mg/dL [facility] Comment:Desirable LDL: less than 100 mg/dLNear Optimal/Above Optimal LDL: 110- 129 mg/dLBorderline High LDL: 130-159 mg/dLHigh LDL: 160-189 mg/dLVery High LDL: greater than or equal to 190 mg/dL HDL Cholesterol 64 >40 mg/dL [facility] Comment:Desirable HDL: great er than 40 mg/dL Note: This HDL assay may give artificially low results in patients with liver disease. Blood Venous blood specimen / Unknown 11/09/2024 10:45 AM EST 11/09/2024 11:33 AM EST Rahul Name LAB BLOOD ORDERABLES Final Resul t [facility] [address] [place] [phone] * Hm Colonoscopy (01/22/2022 12:57 PM EDT) Colonoscopy Normal Normal Narrative EmileeMonica puga - 01/22/2022 12:57 PM EDT Recommended 5 years ( [facility] ) Historical Provider HEALTH MAINTENANCE Final Result from Last 3 Months or Most Recently Relevant to Health Maintenance [place] [place] [address] C3 Care Teams School Transportation Director Relationship Specialty Start Date End Date Name, MD Rahul [address] [place] [address] PCP - General Family Medicine 01/16/16
--- OUTSIDE RECORDS SUMMARY | 2025-08-30 07:47 | XMS_ITS | Encounter Summary ---
Author Organization [employer] Address [address] [facility] [address] 7t [place] [address] Care Team Providers Care Senior Linux Systems Engineer Name Role Phone Name, Rahul KAM Primary Care Provider [phone] Reason for Visit * Reason Comments Med Refill Encounter Details Date Type Department Care Team ([facility] st Contact Info) Description 08/13/2025 Refill [facility] MEDICINE [address] [place] [address] Name, MD Rahul [address] [place] [address] Erectile dysfunction, unspecified erectile dysfunction type Social [...] 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
--- OUTSIDE RECORDS SUMMARY | 2025-08-30 07:48 | XMS_ITS | Encounter Summary ---
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
--- OUTSIDE RECORDS SUMMARY | 2025-08-30 07:48 | XMS_ITS | Clinical Summary ---
Author Organization [facility] Address [address] [place] [address] Care Team Providers Care Script Editor Name Role Phone Name, Rahul KAM Primary Care Provider [phone] Social History Tobacco Use Types Packs/Day Years Used Date Smoking Tobacco: Never Assessed Sex and Gender Information Value Date Recorded Sex Assigned at Not on file Legal Sex Male 8:29 AM EST Gender Identity Not on file Sexual Orientation Not on file Plan of Treatment Health Maintenance Due Date Last Done Comments Colorectal Cancer Screening: Colonoscopy 1968 DTaP,Tdap,and Td Vaccines (1 - Tdap) 1987 Hepatitis B Vaccines (1 of 3 - 19+ 3-dose series) 1987 Pneumococcal Vaccine: 50+ Ye ars (1 of 1 - PCV) 2018 Zoster Vaccines (1 of 2) 2018 Cholesterol Screening (Lipid Panel) 01/12/2024 HIV Screening 01/12/2024 Hepatitis C Screening 01/12/2024 Social Influencers of Health Screening 01/12/2024 Depression Screening 10/18/2024 COVID-19 Vaccine (1 - 2024-2 6 season) 2025 Influenza Vaccine (#1) 2025 RSV [...] age to complete this topic Care Teams Script Editor Relationship Specialty Start Date End Date Name, MD Rahul [address] [place], [place] PCP - General Internal Medicine 04/19/17
--- NOTE | 2025-08-30 07:54 | A.OFFVIS_ITS ---
Intake Visit Reasons: [employer]- RT shoulder pain Intake Note: Yuniel is a 54 year old male who presents with complaints of right shoulder pain. He describes his pain as sharp in nature. Most of the pain is along the lateral aspect of his shoulder. Reports mild weakness when lifting his right hand above shoulder height. He has tried Tylenol and anti-inflammatory medicines which gave him minimal relief. He has not had a cortisone injection. He has tried physical therapy exercises which aggravated his pain. Allergies No Known Allergies (No Known Allergies*) Allergy (Verified 08/30/25 08:04) Medication List - Last Reconciled 08/30/25 by Philip Castillo MD naltrexone 50 mg PO DAILY 14 days naltrexone microspheres ER (Vivitrol) 380 mg IM Q4W 30 days [facility] Medical History (Updated 08/30/25 @ 16:35 by Philip Castillo MD) Depression Alcohol abuse Social History (Updated 08/30/25 @ 08:04 by Chaz Murdock) Alcohol intake: never Patient Tobacco Use Status: Never used Tobacco Physical Exam Extrem Other: Right shoulder examination shows slightly decreased range of motion when compared to his left shoulder, 4+ out of 5 strength with supraspinatus testing, positive impingement signs, no instability Office Procedures AMB Joint Injection/Aspiration Joint Injection/Aspiration Primary Site: Right Shoulder Prep: site was prepped using aseptic technique Injected: 40 mg of, DepoMedrol, with 4 mL of and 1% plain Lidocaine Procedure: The patient tolerated the procedure well Coding 15168 - Large joint Procedure code (CPT) selection complete Results Reviewed Results Reviewed: X-rays of the patient's right shoulder taken today show severe acromioclavicular joint narrowing, a type 2 acromion, no acute bony abnormalities Assessment & Plan Assessment & Plan (1) Impingement syndrome of right shoulder: Code(s): M75.41 - Impingement syndrome of right shoulder Category: Medical Plan Mr. Chambers presents with right shoulder pain due to impingement syndrome and possible rotator cuff tearing. The risks and benefits of a right shoulder cortisone injection were discussed at length with the patient. The patient wished to proceed. He tolerated the injection well. We will hold off on an MRI for now. He will continue with his range of motion exercises. He will contact me prior to his follow-up appointment in 3 months should any questions or concerns arise. Feel free to call me at any time should questions regarding his orthopedic management arise. I spent 21 minutes in reviewing the patient's records and imaging studies, seeing the patient and documenting in the medical record. Orders: Orders AMB Joint Injection/Aspiration Today M75.41 - Impingement syndrome of right shoulder Coding Level of Care Code New Pt Level 3 (05231) Complex EM visit Add On G2211 Diagnoses Impingement syndrome of right shoulder M75.41 CPT Codes Coding - 09586 Large joint: 10597 - Large joint ([id number])
== END 2025-08-30 08:17 | disposition home or self-care (01) ==
LOC: HO.HOS 07:45
PROVIDERS: PCP Internal Medicine Geriatric Medicine; Visit Provider Orthopaedic Surgery
DX: M75.41 Impingement syndrome of right shoulder (principal)
CPT/HCPCS: 20610; 99203

== ENCOUNTER → 2025-08-30 07:44 | Outpatient (BNVA) | payer MEDICAID, SELFPAY | PROVIDERS: PCP Internal Medicine Geriatric Medicine; Visit Provider Orthopaedic Surgery | DX: M75.41 Impingement syndrome of right shoulder (principal); M25.511 Pain in right shoulder | CPT/HCPCS: 20610; 99202; J1010; J2003 ==